=== PATIENT | male | born 1940 | race Two or more races ===

== ENCOUNTER 2016-12-24 23:21 | Emergency (ER) | payer OTHER, MEDICAID ==
[~2016-12-24] VITALS: Ht 165.1 cm; Wt 96.6 kg
[~2016-12-24 23:21] MED LIST: AML5T PO; ASPI-231 PO; ATOR1TAB PO; GLIM1TAB2 PO
[2016-12-25 03:05] VITALS: BP 119/86
== END 2016-12-25 04:20 | disposition home or self-care (01) ==
LOC: ER 23:21
DX: J40 Bronchitis, not specified as acute or chronic (principal); K21.9 Gastro-esophageal reflux disease without esophagitis; E11.9 Type 2 diabetes mellitus without complications; I10 Essential (primary) hypertension; E03.9 Hypothyroidism, unspecified; Z88.0 Allergy status to penicillin
CPT/HCPCS: 71010; 82962

== ENCOUNTER 2017-08-02 21:23 | Emergency (ER) | payer OTHER, MEDICAID ==
[~2017-08-02] VITALS: Ht 165.1 cm; Wt 96.2 kg
[2017-08-02 23:20] VITALS: BP 150/80
[2017-08-03] MEDS ORDERED: TETRACAINE HCL 0.5% OPTH(EYE) SOLN 4ML EACHEYE ONE
[2017-08-03] MEDS ORDERED: CIPROFLOXACIN 0.3%OPTH(EYE) SOL 5ML LEFTEYE ONE (00:15)
[2017-08-03] MEDS ORDERED: GENTAMICIN OPTH sol 0.3% 5ml ONE (00:18)
== END 2017-08-03 00:37 | disposition home or self-care (01) ==
LOC: ER 21:23
DX: H16.002 Unspecified corneal ulcer, left eye (principal); E11.9 Type 2 diabetes mellitus without complications; K21.9 Gastro-esophageal reflux disease without esophagitis; I10 Essential (primary) hypertension; E78.5 Hyperlipidemia, unspecified; Z88.0 Allergy status to penicillin; Z79.82 Long term (current) use of aspirin; Z90.49 Acquired absence of other specified parts of digestive tract

== ENCOUNTER 2017-11-08 22:05 | Emergency (ER) | payer OTHER, MEDICAID ==
[~2017-11-08] VITALS: Ht 165.1 cm; Wt 99.1 kg
[2017-11-08 23:16] LABS: Basophils # (auto) 0.1 uL; Basophils % (auto) 0.6 % (0.0-2.0); Eosinophils # (auto) 0.1 uL; Eosinophils % (auto) 1.2 % (0.0-7.0); Hematocrit 45.6 % (41.0-53.0); Hemoglobin 15.5 g/dL (13.5-17.5); Lymphocytes # (auto) 2.4 uL; Lymphocytes % (auto) 27.6 % (10.0-50.0); Mean Corpuscular Hemoglobin 31.9 pg (28.0-32.0); Mean Corpuscular Hgb Conc. 33.9 g/dL (32.0-36.0); Mean Corpuscular Volume 94.2 fL (80.0-100.0); Monocytes # (auto) 0.9 uL; Monocytes % (auto) 10.2 % (0.0-12.0); Neutrophils # (auto) 5.3 uL; Neutrophils % (auto) 60.4 % (37.0-80.0); Platelet Count (auto) 124 10^3/uL (140-450); Red Blood Cells 4.84 10^6/uL (4.5-5.90); White Blood Cell 8.8 10^3/uL (4.4-10.8)
[2017-11-08 23:31] LABS: Alanine Aminotransferase 25 U/L (16-61); Albumin 3.6 g/dL (3.4-5.0); Anion Gap 9 (5-15); Aspartate Aminotransferase 17 U/L (15-37); BUN/Creatinine Ratio 14.3; Blood Urea Nitrogen 26 mg/dL (7-18); Calcium 8.5 mg/dL (8.5-10.1); Carbon Dioxide 23 mmol/L (21-32); Chloride 108 mmol/L (98-107); GFR African American 47 mL/min; GFR Non-African American 38 mL/min; Glucose 130 mg/dL (74-106); Potassium 4.4 mmol/L (3.5-5.1); Sodium 140 mmol/L (136-145)
[2017-11-08 23:35] LABS: Alkaline Phosphatase 69 U/L (45-117); Bilirubin, Total 0.4 mg/dL (0.2-1.0); Total Protein 7.9 g/dL (6.4-8.2)
[2017-11-09] MEDS ORDERED: SODIUM CHLORIDE 0.9% 1,000 ML IV ONE (04:45)
[2017-11-09] MEDS ORDERED: HYDROcodone-ACET 5/325MG TAB PO ONE (04:45)
[2017-11-09] MEDS ORDERED: MECLIZINE HCL 25 MG TAB PO ONE (04:45)
[2017-11-09 07:19] VITALS: BP 139/78
== END 2017-11-09 07:53 | disposition home or self-care (01) ==
LOC: ER 22:05
DX: R42 Dizziness and giddiness (principal); E11.9 Type 2 diabetes mellitus without complications; K21.9 Gastro-esophageal reflux disease without esophagitis; E78.5 Hyperlipidemia, unspecified; I10 Essential (primary) hypertension; F41.9 Anxiety disorder, unspecified
CPT/HCPCS: 36415; 70450; 80053; 82962; 84484; 85025; 93005; 96360; 99285; J7030; J8597

== ENCOUNTER 2018-04-29 17:19 | Emergency (ER) | payer OTHER, MEDICAID ==
[~2018-04-29] VITALS: Ht 170.2 cm; Wt 96.6 kg
[2018-04-29 21:23] LABS: Basophils # (auto) 0 uL; Basophils % (auto) 0.5 % (0.0-2.0); Eosinophils # (auto) 0.2 uL; Eosinophils % (auto) 2.6 % (0.0-7.0); Hematocrit 47.5 % (41.0-53.0); Hemoglobin 15.9 g/dL (13.5-17.5); Lymphocytes # (auto) 2.4 uL; Lymphocytes % (auto) 31.5 % (10.0-50.0); Mean Corpuscular Hemoglobin 31.8 pg (28.0-32.0); Mean Corpuscular Hgb Conc. 33.4 g/dL (32.0-36.0); Mean Corpuscular Volume 95.1 fL (80.0-100.0); Monocytes # (auto) 0.7 uL; Monocytes % (auto) 9.9 % (0.0-12.0); Neutrophils # (auto) 4.2 uL; Neutrophils % (auto) 55.5 % (37.0-80.0); Nucleated Red Blood Cells % 0.1 %; Platelet Count (auto) 94 10^3/uL (140-450); White Blood Cell 7.5 10^3/uL (4.4-10.8)
[2018-04-29 21:42] LABS: Albumin 3.8 g/dL (3.4-5.0); Anion Gap 4 (5-15); Blood Urea Nitrogen 30 mg/dL (7-18); Calcium 9.2 mg/dL (8.5-10.1); Carbon Dioxide 26 mmol/L (21-32); Chloride 108 mmol/L (98-107); Glucose 107 mg/dL (74-106); Potassium 5.2 mmol/L (3.5-5.1); Sodium 138 mmol/L (136-145)
[2018-04-29 21:48] LABS: Alanine Aminotransferase 20 U/L (16-61); Alkaline Phosphatase 75 U/L (45-117); Aspartate Aminotransferase 18 U/L (15-37); BUN/Creatinine Ratio 17.3; Bilirubin, Total 0.4 mg/dL (0.2-1.0); GFR African American 49 mL/min; GFR Non-African American 41 mL/min; Total Protein 7.9 g/dL (6.4-8.2)
[2018-04-29] MEDS ORDERED: IPRATROPIUM BROM 0.5 MG/2.5ML INH SOL NEB ONE (22:00)
[2018-04-29] MEDS ORDERED: predniSONE 20 MG TAB PO ONE (22:00)
[2018-04-29] MEDS ORDERED: ALBUTEROL SULF 2.5 MG/0.5ML(0.5%) NEB SOLN NEB ONE (22:00)
[2018-04-30] MEDS ORDERED: SODIUM CHLORIDE 0.9% 1,000 ML IV ONE (00:30)
[2018-04-30 02:00] VITALS: BP 125/78
== END 2018-04-30 02:09 | disposition home or self-care (01) ==
LOC: EDBD 17:19 → ER 17:26
DX: J44.1 Chronic obstructive pulmonary disease with (acute) exacerbation (principal); I10 Essential (primary) hypertension; R42 Dizziness and giddiness; E11.9 Type 2 diabetes mellitus without complications; K21.9 Gastro-esophageal reflux disease without esophagitis; E78.5 Hyperlipidemia, unspecified; Z88.0 Allergy status to penicillin
CPT/HCPCS: 36415; 71046; 80053; 84484; 85025; 86141; 93005; 94640; 99284; J7030; J7512; J7611; J7644

== ENCOUNTER 2021-10-21 12:19 | Emergency (ER) | payer OTHER, MEDICAID ==
[~2021-10-21] VITALS: Ht 327.7 cm; Wt 80.0 kg
[~2021-10-21 12:19] MED LIST changes: -ASPI-231 PO; +ASPI1TAB20 PO; +ATOR-47 PO; -ATOR1TAB PO; +ATOR20TA PO; +EMPA1TAB PO; +FER325T PO; +GLIM-5 PO; -GLIM1TAB2 PO; +NIFE1TAB31 PO; +PANT40TA2 PO
[2021-10-21 13:30] LABS: Basophils # (auto) 0 10 ^3/uL (0-0.2); Basophils % (auto) 0.4 % (0.0-2.0); Eosinophils # (auto) 0.1 10 ^3/uL (0-0.8); Eosinophils % (auto) 1.1 % (0.0-7.0); Hematocrit 26.5 % (41.0-53.0); Lymphocytes % (auto) 13.4 % (10.0-50.0); Mean Corpuscular Hemoglobin 22.5 pg (28.0-32.0); Mean Corpuscular Hgb Conc. 30.3 g/dL (32.0-36.0); Mean Corpuscular Volume 74.3 fL (80.0-100.0); Monocytes # (auto) 0.8 10 ^3/uL (0-1.3); Monocytes % (auto) 9.8 % (0.0-12.0); Neutrophils # (auto) 5.8 10 ^3/uL (1.6-8.6); Neutrophils % (auto) 75.3 % (37.0-80.0); Red Blood Cells 3.56 10^6/uL (4.5-5.90); Red Cell Distribution Width 17.3 % (11.8-14.3); White Blood Cell 7.7 10^3/uL (4.4-10.8)
[2021-10-21 13:51] LABS: Albumin 2.8 g/dL (3.4-5.0); Calcium 9.3 mg/dL (8.5-10.1); Potassium 4.1 mmol/L (3.5-5.1)
[2021-10-21 13:54] LABS: BUN/Creatinine Ratio 11.8; Bilirubin, Total 0.4 mg/dL (0.2-1.0); Total Protein 7.6 g/dL (6.4-8.2)
[2021-10-21] MEDS ORDERED: MECL25CH20 PO (14:44)
[2021-10-21 19:13] VITALS: BP 128/61
== END 2021-10-21 19:20 | disposition home or self-care (01) ==
LOC: ER 12:19
DX: R42 Dizziness and giddiness (principal); E11.65 Type 2 diabetes mellitus with hyperglycemia; K21.9 Gastro-esophageal reflux disease without esophagitis; E78.5 Hyperlipidemia, unspecified; I10 Essential (primary) hypertension; Z90.49 Acquired absence of other specified parts of digestive tract
CPT/HCPCS: 36415; 70450; 80053; 82962; 84484; 85025; 93005

== ENCOUNTER 2021-12-02 14:33 | Emergency (ER) | payer OTHER, MEDICAID ==
[~2021-12-02] VITALS: Ht 170.2 cm; Wt 123.0 kg
[~2021-12-02 14:33] MED LIST changes: +MECL25CH20 PO
[2021-12-02 16:06] LABS: Basophils # (auto) 0 10 ^3/uL (0-0.2); Basophils % (auto) 0.4 % (0.0-2.0); Eosinophils # (auto) 0 10 ^3/uL (0-0.8); Eosinophils % (auto) 0.5 % (0.0-7.0); Hematocrit 21.1 % (41.0-53.0); Lymphocytes # (auto) 1.3 10 ^3/uL (0.4-5.4); Monocytes # (auto) 1.2 10 ^3/uL (0-1.3)
[2021-12-02 16:10] LABS: Lymphocytes % (auto) 14.7 % (10.0-50.0); Mean Corpuscular Hemoglobin 21.9 pg (28.0-32.0); Mean Corpuscular Hgb Conc. 30.5 g/dL (32.0-36.0); Mean Corpuscular Volume 71.8 fL (80.0-100.0); Monocytes % (auto) 13.5 % (0.0-12.0); Neutrophils # (auto) 6.1 10 ^3/uL (1.6-8.6); Neutrophils % (auto) 70.9 % (37.0-80.0); Nucleated Red Blood Cells % 0.1 %; Red Blood Cells 2.93 10^6/uL (4.5-5.90); Red Cell Distribution Width 17.5 % (11.8-14.3); White Blood Cell 8.7 10^3/uL (4.4-10.8)
[2021-12-02 16:22] LABS: Hemoglobin 6.4 g/dL (13.5-17.5)
[2021-12-02 16:24] LABS: Calcium 8.7 mg/dL (8.5-10.1); Partial Thromboplastin Time 25.5 sec (24.6-33.4); Potassium 4.5 mmol/L (3.5-5.1)
[2021-12-02 16:28] LABS: Albumin 2.8 g/dL (3.4-5.0); BUN/Creatinine Ratio 9.7; Magnesium 2.1 mg/dL (1.6-2.6)
[2021-12-02 16:30] LABS: Bilirubin, Total 0.3 mg/dL (0.2-1.0); Total Protein 7.4 g/dL (6.4-8.2)
[2021-12-02] MEDS ORDERED: MECLIZINE HCL 25 MG TAB PO ONE ×3 (20:00→21:45)
[2021-12-02 20:50] VITALS: BP 138/66
[2021-12-02 21:10] VITALS: BP 134/64
[2021-12-02 22:30] VITALS: BP 138/66
[2021-12-02 23:15] VITALS: BP 137/56
[2021-12-03] VITALS (8 sets, daily range): BP systolic 106–123; BP diastolic 39–62
[2021-12-03 01:38] LABS: Basophils # (auto) 0 10 ^3/uL (0-0.2); Basophils % (auto) 0.5 % (0.0-2.0); Eosinophils # (auto) 0.1 10 ^3/uL (0-0.8); Eosinophils % (auto) 1.3 % (0.0-7.0); Lymphocytes # (auto) 1.8 10 ^3/uL (0.4-5.4); Mean Corpuscular Volume 75.4 fL (80.0-100.0); Neutrophils # (auto) 6.2 10 ^3/uL (1.6-8.6)
[2021-12-03 01:40] LABS: Lymphocytes % (auto) 18.7 % (10.0-50.0); Mean Corpuscular Hemoglobin 24.1 pg (28.0-32.0); Mean Corpuscular Hgb Conc. 31.9 g/dL (32.0-36.0); Monocytes # (auto) 1.3 10 ^3/uL (0-1.3); Monocytes % (auto) 13.6 % (0.0-12.0); Neutrophils % (auto) 65.9 % (37.0-80.0); Red Blood Cells 2.92 10^6/uL (4.5-5.90); Red Cell Distribution Width 18.8 % (11.8-14.3); White Blood Cell 9.4 10^3/uL (4.4-10.8)
[2021-12-03] MEDS ORDERED: MECL25CH20 PO (08:25)
[2021-12-03] MEDS ORDERED: MECLIZINE HCL 25 MG TAB PO ONE (09:30)
[2021-12-03 13:22] LABS: Basophils # (auto) 0.1 10 ^3/uL (0-0.2); Basophils % (auto) 1.1 % (0.0-2.0); Eosinophils # (auto) 0.1 10 ^3/uL (0-0.8); Eosinophils % (auto) 1.5 % (0.0-7.0); Hematocrit 26.4 % (41.0-53.0); Hemoglobin 8.2 g/dL (13.5-17.5); Lymphocytes # (auto) 1.5 10 ^3/uL (0.4-5.4); Lymphocytes % (auto) 16.6 % (10.0-50.0); Mean Corpuscular Hgb Conc. 31.2 g/dL (32.0-36.0); Monocytes # (auto) 1.1 10 ^3/uL (0-1.3); Monocytes % (auto) 12.1 % (0.0-12.0); Neutrophils # (auto) 6.1 10 ^3/uL (1.6-8.6); Neutrophils % (auto) 68.7 % (37.0-80.0); Nucleated Red Blood Cells % 0.1 %; Red Blood Cells 3.43 10^6/uL (4.5-5.90); Red Cell Distribution Width 19.7 % (11.8-14.3); White Blood Cell 8.9 10^3/uL (4.4-10.8)
[2021-12-03 13:38] LABS: Urine Bacteria NONE SEEN /hpf (None Seen); Urine Blood 1+ /uL (Negative); Urine Specific Gravity 1.009 (1.001-1.035); Urine WBC 2 /hpf (0 - 3)
[2021-12-03] MEDS ORDERED: CIPROFLOXACIN HCL 500 MG TAB PO ONE (15:30)
== END 2021-12-03 21:11 ==
LOC: EDUNIT# 14:33 → EDBD 14:33 → ER 14:33
DX: R42 Dizziness and giddiness (principal); D64.9 Anemia, unspecified; I12.9 Hypertensive chronic kidney disease with stage 1 through stage 4 chronic kidney disease, or unspecified chronic kidney disease; E11.22 Type 2 diabetes mellitus with diabetic chronic kidney disease; N18.30 Chronic kidney disease, stage 3 unspecified; Z90.49 Acquired absence of other specified parts of digestive tract; Z79.82 Long term (current) use of aspirin; Z79.899 Other long term (current) drug therapy; Z88.0 Allergy status to penicillin; Z20.822 Contact with and (suspected) exposure to COVID-19
CPT/HCPCS: 36415; 36430; 70450; 71045; 72125; 80053; 81001; 83735; 85025; 85610; 85730; 86850; 86900; 86901; 86920; 87426; 99285; J8597; P9016; 93005